=== PATIENT | female | born 1975 | race Caucasian/White ===

== ENCOUNTER 2019-03-09 11:53 | Emergency (ER) | payer OTHER ==
--- NOTE | 2019-03-09 12:13 | ER Document Report ---
ED Medical Screen (RME) - General Chief Complaint: Abdominal Pain Stated Complaint: ABDOMINAL PAIN Time Seen by Provider: 03/09/19 12:11 Primary Care Provider: VIRGIE MCCLURE MD [Primary Care Provider] - Follow up as needed Mode of Arrival: Ambulatory Information source: Patient Notes: 44-year-old female presenting with her right upper quadrant abdominal pain nausea vomiting feeling like she is full epigastric pain since Sunday. No CVA tenderness no urinary symptoms no fever. Patient is alert oriented respirations regular and unlabored speaking in full sentences walks with a even steady gait. She was sent over by [facility] to be evaluated. I have greeted and performed a rapid initial assessment of this patient. A comprehensive ED assessment and evaluation of the patient, analysis of test results and completion of medical decision making process will be conducted by an additional ED providers. TRAVEL OUTSIDE OF THE [place] IN LAST 30 DAYS: No - Related Data Allergies/Adverse Reactions: No Known Allergies Allergy (Verified 03/09/19 11:54) Past Medical History Renal/ Medical History: Denies: Hx Peritoneal Dialysis Physical Exam - Vital signs Vitals: Temp Pulse Resp BP Pulse Ox 98.1 F 93 16 151/74 H 96 03/09/19 12:02 03/09/19 12:02 03/09/19 12:02 03/09/19 12:02 03/09/19 12:02 Course - Vital Signs Vital signs: Temp Pulse Resp BP Pulse Ox 98.1 F 93 16 151/74 H 96 03/09/19 12:02 03/09/19 12:02 03/09/19 12:02 03/09/19 12:02 03/09/19 12:02 Doctor's Discharge - Discharge Referrals: VIRGIE MCCLURE MD [Primary Care Provider] - Follow up as needed
--- NOTE | 2019-03-09 12:48 | RADIOLOGY REPORT (SQ) ---
EXAM DESCRIPTION: U/S ABDOMEN LTD W/DOPPLER COMPLETED DATE/TIME: 03/09/2019 12:35 pm REASON FOR STUDY: upper abdominal pain nv COMPARISON: None. TECHNIQUE: Dynamic and static grayscale images acquired of the abdomen and recorded on PACS. Additio nal selected color Doppler and spectral images recorded. LIMITATIONS: None. FINDINGS: PANCREAS: No masses. Visualized pancreatic duct normal caliber. LIVER: No masses. Echotexture increased suggesting fatty infiltration. LIVER VASCULATURE: Normal directional flow of the main portal vein and hepatic veins. GALLBLADDER: No stones. Normal wall thickness. No pericholecystic fluid. ULTRASOUND-DETECTED PUGH'S SIGN: Negative. INTRAHEPATIC DUCTS AND COMMON DUCT: CBD and intrahepatic ducts normal caliber. No filling defects. INFERIOR VENA CAVA: Normal flow. AORTA: No aneurysm identified. RIGHT KIDNEY: Normal size. Normal echogenicity. No solid or suspicious masses. No hydronephros is. No calcifications. PERITONEAL AND RIGHT PLEURAL SPACE: No ascites or effusions. OTHER: No other significant findings. IMPRESSION: NO ACUTE FINDINGS. Fatty liver. TECHNICAL DOCUMENTATION: JOB ID: [id number] 2010 [employer]- All Rights Reserved Reading location - IP/workstation name: [email or web address]
[2019-03-09 12:59] LABS: ALANINE AMINOTRANSFERASE 39 U/L (9-52); ALBUMIN 4.1 g/dL (3.5-5.0); ALKALINE PHOSPHATASE 90 U/L (38-126); ANION GAP 12 (5-19); ASPARTATE AMINO TRANSFERASE 20 U/L (14-36); BILIRUBIN,DIRECT 0.3 mg/dL (0.0-0.4); BILIRUBIN,TOTAL 0.4 mg/dL (0.2-1.3); BLOOD UREA NITROGEN 15 mg/dL (7-20); CALCIUM 9.5 mg/dL (8.4-10.2); CARBON DIOXIDE 26 mmol/L (22-30); CHLORIDE 102 mmol/L (98-107); GLUCOSE 77 mg/dL (75-110); LIPASE 89.1 U/L (23-300); POTASSIUM 3.8 mmol/L (3.6-5.0); SODIUM 139.6 mmol/L (137-145)
[2019-03-09 13:03] LABS: ABSOLUTE EOSINOPHILS # (AUTO) 0.1 10^3/uL (0.0-0.6); ABSOLUTE LYMPHOCYTES (AUTO) 2.4 10^3/uL (0.5-4.7); ABSOLUTE MONOCYTES (AUTO) 0.5 10^3/uL (0.1-1.4); ABSOLUTE NEUT (AUTO) 5.1 10^3/uL (1.7-8.2); BASOPHILS % (AUTO) 0.3 % (0-2); EOSINOPHILS % (AUTO) 1.1 % (0-6); HEMATOCRIT 38.5 % (36.0-47.0); HEMOGLOBIN 13.1 g/dL (12.0-15.5); LYMPHOCYTES % (AUTO) 29.5 % (13-45); MEAN CORPUSCULAR HEMOGLOBIN 28.7 pg (27.0-33.4); MEAN CORPUSCULAR HGB CONC 34.1 g/dL (32.0-36.0); MEAN CORPUSCULAR VOLUME 84 fl (80-97); MONOCYTES % (AUTO) 6.3 % (3-13); PLATELET COUNT 320 10^3/uL (150-450); RED BLOOD COUNT 4.58 10^6/uL (3.72-5.28); SEGMENTED NEUTROPHILS % (AUTO) 62.8 % (42-78); TOTAL CELLS COUNTED % (AUTO) 100 %; WHITE BLOOD COUNT 8.1 10^3/uL (4.0-10.5)
--- NOTE | 2019-03-09 15:50 | ER Document Report ---
ED General - General Chief Complaint: Abdominal Pain Stated Complaint: ABDOMINAL PAIN Time Seen by Provider: 03/09/19 12:11 Primary Care Provider: VIRGIE MCCLURE MD [ACTIVE STAFF] - Follow up as needed Mode of Arrival: Ambulatory Notes: 44-year-old female presenting with her right upper quadrant abdominal pain, nausea, vomiting, and feeling like she has full epigastric pain since Sunday. No CVA tenderness, no urinary symptoms, no fever. Patient states that the pain is worse after eating. No other complaints. And over by [facility]. TRAVEL OUTSIDE OF THE [place] IN LAST 30 DAYS: No - Related Data Allergies/Adverse Reactions: No Known Allergies Allergy (Verified 03/09/19 11:54) Past Medical History - General Information source: Patient - Social History Smoking Status: Never Smoker Family History: None Patient has suicidal ideation: No Patient has homicidal ideation: No Renal/ Medical History: Denies: Hx Peritoneal Dialysis Review of Systems - Review of Systems Constitutional: See HPI EENT: No symptoms reported Cardiovascular: See HPI Respiratory: See HPI Gastrointestinal: See HPI Genitourinary: See HPI Female Genitourinary: No symptoms reported Musculoskeletal: No symptoms reported Skin: No symptoms reported Hematologic/Lymphatic: No symptoms reported Neurological/Psychological: No symptoms reported Physical Exam - Vital signs Vitals: Temp Pulse Resp BP Pulse Ox 98.1 F 93 16 151/74 H 96 03/09/19 12:02 03/09/19 12:02 03/09/19 12:02 03/09/19 12:02 03/09/19 12:02 - Notes Notes: PHYSICAL EXAMINATION: Reviewed vital signs and charting by RN GENERAL: Alert, interacts well. No acute distress. HEAD: Normocephalic, atraumatic. EYES: Pupils equal and round. Extraocular movements intact. ENT: Oral mucosa moist, tongue midline. NECK: Full range of motion. Supple. Trachea midline. LUNGS: Clear to auscultation bilaterally, no wheezes, rales, or rhonchi. No respiratory distress. HEART: Regular rate and rhythm. No murmur ABDOMEN: soft, non-tender. Non-distended. Bowel sounds present. no McBurney's point tenderness, + Shields sign. EXTREMITIES: Moves all 4 extremities spontaneously. No edema, No cyanosis. Normal distal neurovascular exam BACK: No CVAT NEUROLOGIC: Oriented and appropriate. Normal speech. PSYCH: Normal affect, normal mood. SKIN: Warm, dry, normal turgor. No rashes or lesions noted. Course - Re-evaluation Re-evalutation: Patient's symptoms consistent with classic biliary colic but ultrasound was negative for stones or sludge. No fever, no leukocytosis, I have no concern for cholecystitis or cholangitis. Patient has been referred to gastroenterology and is stable for discharge. - Vital Signs Vital signs: Temp Pulse Resp BP Pulse Ox 98.7 F 80 18 142/70 H 98 03/09/19 15:51 03/09/19 15:51 03/09/19 15:51 03/09/19 15:51 03/09/19 15:51 - Laboratory Result Diagrams: 03/09/19 12:18 03/09/19 12:18 Discharge - Discharge Clinical Impression: Biliary colic symptom Condition: Good Disposition: HOME, SELF-CARE Instructions: Abdominal Pain ([facility]) Additional Instructions: You were seen for pain in your abdomen that could be related to your gallbladder. Your work-up today does not show any signs that you need to have your gallbladder removed. It is unclear why you are having this abdominal pain and it could be related to something called biliary colic spasms causing pain. He did not have any gallstones or any gall sludge on the ultrasound. Please follow-up with your primary care provider this week to consider a gastroenterology consult. If you develop fever, worsening right upper quadrant pain, intractable nausea or vomiting, persistent diarrhea, bloody vomiting or bloody diarrhea please immediately return to the emergency department. Referrals: VIRGIE MCCLURE MD [ACTIVE STAFF] - Follow up as needed
[2019-03-09 15:53] VITALS: BP 142/70
== END 2019-03-09 15:58 | disposition home or self-care (01) ==
LOC: ER 11:53
DX: K80.50 Calculus of bile duct without cholangitis or cholecystitis without obstruction (principal); R10.9 Unspecified abdominal pain; R10.11 Right upper quadrant pain; R11.2 Nausea with vomiting, unspecified; R10.13 Epigastric pain
CPT/HCPCS: 36415; 76705; 80053; 83690; 85025; 93976; 99284